=== PATIENT | female | born 1985 | race African-American/Black ===

== ENCOUNTER 2021-12-01 01:44 | Emergency (ER) | payer MEDICAID ==
[~2021-12-01] VITALS: Ht 167.6 cm; Wt 54.0 kg
[2021-12-01] MEDS ORDERED: FERR325T27 PO (02:07)
[2021-12-01] MEDS ORDERED: AMLO5TAB66 PO (02:07)
[2021-12-01 02:30] VITALS: BP 141/85
[2021-12-01] MEDS ORDERED: DiphenhydrAMINE HCL 25 MG CAPSULE PO ONE (03:00)
== END 2021-12-01 03:46 | disposition home or self-care (01) ==
LOC: EMS 01:46
DX: S10.96XA Insect bite of unspecified part of neck, initial encounter (principal); I10 Essential (primary) hypertension; F17.200 Nicotine dependence, unspecified, uncomplicated; W57.XXXA Bitten or stung by nonvenomous insect and other nonvenomous arthropods, initial encounter; Y93.89 Activity, other specified; Y92.89 Other specified places as the place of occurrence of the external cause; Y99.8 Other external cause status
CPT/HCPCS: 99282; 99283

== ENCOUNTER 2022-04-16 00:47 | Emergency (ER) | payer MEDICAID, OTHER ==
[~2022-04-16] VITALS: Ht 167.6 cm; Wt 53.2 kg
[~2022-04-16 00:47] MED LIST: AMLO5TAB66 PO; FERR325T27 PO
[2022-04-16 09:01] VITALS: BP 127/84
== END 2022-04-16 09:02 | disposition home or self-care (01) ==
LOC: EMS 00:48
DX: F41.9 Anxiety disorder, unspecified (principal); I10 Essential (primary) hypertension
CPT/HCPCS: 99283

== ENCOUNTER 2025-06-09 15:43 | Emergency (ER) | payer OTHER ==
[~2025-06-09] VITALS: Ht 165.1 cm; Wt 52.3 kg
[2025-06-09 15:53] VITALS: BP 166/111; PULSE 108; RESP 20; TEMP 98.4; O2SAT 97
[2025-06-09 16:20] LABS: GLUCOMETER DEV NAME(LOC) ER.7; GLUCOSE,POINT OF CARE 102 MG/DL (70-110)
[2025-06-09 16:37] LABS: PLATELET COUNT (AUTO) 186 K/uL (150-450); RED BLOOD CELL COUNT(AUTO) 3.37 MIL/uL (4.00-5.20); RED CELL DISTRIBUTION WIDTH 18.1 % (11.5-14.5); WHITE BLOOD COUNT (AUTO) 4.7 K/uL (4.5-11.0)
[2025-06-09 16:48] LABS: CALCIUM, TOTAL 9.1 mg/dL (8.8-10.5); CREATININE 0.74 mg/dL (0.60-1.30); GLOMERULAR FILTR. RATE CALC > 60 mL/min (>60); GLUCOSE,RANDOM 98 mg/dL (70-110); SODIUM SERUM 138 mmol/L (136-145); UREA NITROGEN, BLOOD 14 mg/dL (7-18)
== END 2025-06-09 17:02 | disposition home or self-care (01) ==
LOC: EMS 15:43
DX: R55 Syncope and collapse (principal); D64.9 Anemia, unspecified; R25.1 Tremor, unspecified; I10 Essential (primary) hypertension; F41.9 Anxiety disorder, unspecified; Z79.899 Other long term (current) drug therapy
CPT/HCPCS: 80048; 82962; 84703; 85025; 93005; 99284